=== PATIENT | male | born 1995 | race Caucasian/White ===

== ENCOUNTER 2021-12-07 20:39 | Emergency (ER) | payer BC ==
[~2021-12-07 20:39] MED LIST: CLARINEX-D 121 EACH PO; CLARITIN-D (12 H1 EA PO; FLONASE 0.05% N16 GM NS; LEVAQUIN500 MG PO; MEDROL DOSEPAK 24 MG PO; TYLENOL 500 MG500 MG PO
== END 2021-12-08 00:01 | disposition home or self-care (01) ==
LOC: ER1 20:39
DX: J02.9 Acute pharyngitis, unspecified (principal); Z20.822 Contact with and (suspected) exposure to COVID-19
CPT/HCPCS: 0240U; 87081; 87880; 99284

== ENCOUNTER 2022-01-06 23:30 | Emergency (ER) | payer BC ==
[2022-01-07 00:25] LABS: HEMOGLOBIN 13.3 gm/dl (14.0-17.5); RED BLOOD COUNT 4.37 M/UL (4.20-5.50); WHITE BLOOD COUNT 11.4 K/UL (4.5-11.0)
[2022-01-07 00:45] LABS: BUN/CREATININE RATIO 14 (0-10)
[2022-01-07] MEDS ORDERED: ONDANSETRON ODT4 MG SL (04:57)
[2022-01-07] MEDS ORDERED: IMODIUM CAP 2 MG2 MG PO (04:57)
== END 2022-01-07 05:09 | disposition home or self-care (01) ==
LOC: ER1 23:30
PROVIDERS: Family Medicine
DX: R10.9 Unspecified abdominal pain (principal); R11.0 Nausea; R19.7 Diarrhea, unspecified; J45.909 Unspecified asthma, uncomplicated; Z88.0 Allergy status to penicillin
CPT/HCPCS: 80053; 81001; 83690; 85025; 96361; 96374; 99284; J1885; Q9967